=== PATIENT | male | born 2000 | race Hispanic/Latino ===

== ENCOUNTER 2022-12-11 16:35 | Emergency (ER) | payer OTHER ==
[~2022-12-11] VITALS: Ht 170.2 cm; Wt 57.6 kg
[2022-12-11 20:42] LABS: SARS-CoV-2, RNA, NAAT POSITIVE SARS CoV-2 (NEGATIVE)
[2022-12-11 21:16] VITALS: BP 105/69; PULSE 67; RESP 17; O2SAT 97
== END 2022-12-11 21:28 | disposition home or self-care (01) ==
LOC: EDH 16:35
DX: U07.1 COVID-19 (principal)
CPT/HCPCS: 99283; 87635; C9803